=== PATIENT | female | born 1975 | race Two or more races ===

== ENCOUNTER → 2025-01-23 | Day surgery (SDC) | payer OTHER ==
[2025-01-18 11:08] VITALS: BP 118/75
[2025-01-18 11:48] LABS: URINE APPEARANCE Cloudy; URINE BILIRRUBIN Negative (NEGATIVE); URINE BLOOD Negative; URINE COLOR Yellow; URINE GLUCOSE Negative (NEGATIVE); URINE KETONE Negative (NEGATIVE); URINE LEUKOCYTE Moderate; URINE NITRATE Negative; URINE PROTEIN Trace (NEGATIVE); URINE UROBILINOGEN 0.2 E.U./dl
[2025-01-18 11:52] LABS: BASO % 0.4 % (0.1-1.2); EOS # 0.04 (0.04-0.54); EOS % 0.9 % (0.7-7.0); LYMPH # 1.38 (1.18-3.74); LYMPH % 30.1 % (19.3-53.1); MEAN PLATELET VOLUME 11.50 fl (9.4-12.4); MONO # 0.31 (0.24-0.82); MONO % 6.8 % (4.7-12.5); NEUT # 2.82 (1.56-6.13); NEUT % 61.6 % (34.0-71.1); RED CELL DISTRIBUTION WIDTH 12.5 % (11.6-14.4)
[2025-01-18 11:53] LABS: URINE EPITHELIAL CELLS 111.0 uL (0.0-38.8); URINE RBC 44.1 uL (0.0-20.8); URINE WBC 45.0 uL (0.0-23.2)
[2025-01-18 11:57] LABS: URINE CAST 1.02 uL (0.0-1.40)
[2025-01-18 12:27] LABS: ALT/SGPT 17.0 U/L (12-78); AST/SGOT 13.0 U/L (15-37); BILIRUBIN TOTAL 0.4 mg/dL (0.3-1.2); BUN CREA RATIO 16.0 (7.0-25.0); CREATININE SERUM 0.55 mg/dL (0.55-1.02); GFR 118.48; GLOBULINA 3.4 G/DL (2.4-3.5); GLUCOSE FASTING 86.0 mg/dL (65-100); OSMOLALITY SERUM 279.0 MOSM/KG (275-295)
[2025-01-18 12:30] LABS: INR 0.99
[~2025-01-23] VITALS: Ht 170.2 cm; Wt 70.3 kg
[~2025-01-23] MED LIST: CIPROFLOXACIN IN 5 % DEXTROSE 400 MG/200 ML PIGGYBAG IV ONE; CIPROFLOXACIN IN 5 % DEXTROSE 400 MG/200 ML PIGGYBAG IV SCH; CLONAZEPAM0.5 MG PO; LEXAPRO20 MG PO; SUGAMMADEX SODIUM 200 MG/2 ML VIAL IV ONE
== END | disposition home or self-care (01) ==
LOC: CIR.AMB 07:00
PROVIDERS: ATTEND Surgery
DX: K81.1 Chronic cholecystitis (principal); Z88.0 Allergy status to penicillin; Z91.013 Allergy to seafood

== ENCOUNTER 2025-02-06 05:43 | Emergency (ER) | payer OTHER ==
[~2025-02-06] VITALS: Ht 170.2 cm; Wt 70.3 kg
[~2025-02-06 05:43] MED LIST changes: -CIPROFLOXACIN IN 5 % DEXTROSE 400 MG/200 ML PIGGYBAG IV ONE; -CIPROFLOXACIN IN 5 % DEXTROSE 400 MG/200 ML PIGGYBAG IV SCH; -SUGAMMADEX SODIUM 200 MG/2 ML VIAL IV ONE
[2025-02-06 06:10] VITALS: BP 114/76; O2SAT 100
[2025-02-06] MEDS ORDERED: 0.9 % SODIUM CHLORIDE 1,000 ML IV STA (07:29)
[2025-02-06] MEDS ORDERED: DEXAMETHASONE SODIUM PHOSPHATE 4 MG/ML VIAL IM STA (07:29)
[2025-02-06] MEDS ORDERED: ONDANSETRON HCL 2 MG/ML VIAL IV STA (07:29)
[2025-02-06] MEDS ORDERED: FAMOTIDINE/PF 20 MG/2 ML VIAL IV STA (07:29)
== END 2025-02-06 08:55 | disposition left against medical advice (07) ==
LOC: ER 05:44
DX: G89.18 Other acute postprocedural pain (principal); Z88.0 Allergy status to penicillin; Z91.013 Allergy to seafood; R10.24 Suprapubic pain